=== PATIENT | male | born 1975 | race Caucasian/White ===

== ENCOUNTER 2018-02-13 18:39 | Emergency (ER) | payer MEDICAID ==
[~2018-02-13] VITALS: Ht 188 cm; Wt 109.1 kg
[2018-02-13 21:50] LABS: CLARITY,URINE CLEAR (Clear); COLOR,URINE STRAW (Yellow); GLUCOSE, URINE NEGATIVE (Neg); KETONES,URINE NEGATIVE (Neg); LEUKOCYTE ESTERASE ,URINE NEGATIVE (Neg); NITRITES, URINE NEGATIVE (Neg); OCCULT BLOOD,URINE NEGATIVE (Neg); PH,URINE 6.5 (4.8-8.0); PROTEIN,URINE NEGATIVE (Neg); UA COLLECTION TYPE CLN CATCH MIDSTREAM; UROBILINOGEN,URINE 0.2 E.U/dL (0.2-1.0)
[2018-02-13 21:53] LABS: BASOPHILS # (AUTO) 0.1 X10'3 (0-0.2); BASOPHILS % (AUTO) 1.2 % (0-1); EOSINOPHILS # (AUTO) 0.1 X10'3 (0-0.9); EOSINOPHILS % (AUTO) 1.7 % (0-6); HEMATOCRIT 40.6 % (42.0-52.0); HEMOGLOBIN 14.6 g/dl (14.0-17.9); LYMPHOCYTES # (AUTO) 2.4 X10'3 (1.1-4.8); LYMPHOCYTES % (AUTO) 30.7 % (21-51); MEAN CORPUSCULAR HEMOGLOBIN 31.5 PG (27.0-31.0); MEAN CORPUSCULAR HGB CONC 35.9 % (33.0-36.5); MEAN CORPUSCULAR VOLUME 87.9 FL (78-98); MONOCYTES # (AUTO) 0.6 X10'3 (0-0.9); MONOCYTES % (AUTO) 7.5 % (2-12); NEUTROPHILS # (AUTO) 4.5 X10'3 (1.8-7.7); NEUTROPHILS % (AUTO) 58.9 % (42-75); PLATELET COUNT 229 X10'3 (140-440); RED BLOOD COUNT 4.62 X10'6 (4.70-6.10); RED CELL DISTRIBUTION WIDTH 13.5 % (11.5-14.5); WHITE BLOOD COUNT 7.7 X10'3 (4.5-11.0)
[2018-02-13 21:56] LABS: URINE AMPHETAMINE SCREEN NEGATIVE (Neg); URINE BARBITUATE SCREEN NEGATIVE (Neg); URINE BENZODIAZEPINES SCREEN NEGATIVE (Neg); URINE CANNABINOID SCREEN NEGATIVE (Neg); URINE COCAINE SCREEN NEGATIVE (Neg); URINE METHADONE SCREEN NEGATIVE (Neg); URINE OPIATE SCREEN NEGATIVE (Neg); URINE PHENCYCLIDINE SCREEN NEGATIVE (Neg)
[2018-02-13 23:17] LABS: ALANINE AMINOTRANSFERASE 28 U/L (12-78); ALBUMIN 3.4 G/DL (3.4-5.0); ASPARTATE AMINO TRANSFERASE 21 U/L (10-37); BILIRUBIN,TOTAL 0.3 MG/DL (0.1-1.0); BLOOD UREA NITROGEN 10 MG/DL (7-18); CALCIUM 8.2 MG/DL (8.5-10.1); CHLORIDE 105 MMOL/L (99-107); CREATININE 1.25 MG/DL (0.60-1.10); ETHANOL 0.157 GM/DL (0.0-0.010); GLUCOSE 113 MG/DL (70-104); POTASSIUM 3.3 MMOL/L (3.5-5.1); SODIUM 143 MMOL/L (135-145); TOTAL PROTEIN 6.8 G/DL (6.4-8.2); eGFR 63 ML/MIN
[2018-02-13 23:23] LABS: ANION GAP 12 (8-16); TOTAL CARBON DIOXIDE 25.7 MMOL/L (24-32)
[2018-02-13 23:24] LABS: ALKALINE PHOSPHATASE 74 IU/L (46-116)
[2018-02-13] MEDS ORDERED: potassium Cl 20 mEq SR tablet PO STA (23:26)
[2018-02-14 00:41] LABS: ACETAMINOPHEN < 2.0 UG/ML (10-30)
[2018-02-14] MEDS ORDERED: BENZ1TAB7 PO (12:32)
[2018-02-14] MEDS ORDERED: ESCI20TA PO (12:32)
[2018-02-14] MEDS ORDERED: OXCA600T5 PO (12:32)
[2018-02-14] MEDS ORDERED: PALI117D IM (12:32)
[2018-02-14] MEDS ORDERED: BUSP5TAB3 PO (12:32)
[2018-02-14] MEDS ORDERED: QUET400T PO (12:32)
[2018-02-14] MEDS ORDERED: LORazepam 1 MG tablet PO ONE ×2 (14:50→15:30)
[2018-02-14] MEDS: oxcarbazepine 150mg tablet PO SCH (20:08)
[2018-02-14] MEDS: busPIRone 15mg tablet PO SCH (20:08)
[2018-02-14] MEDS: benztropine 1mg tablet PO SCH (20:08)
[2018-02-14] MEDS: quetiapine 100mg tablet PO SCH (20:08)
[2018-02-15] MEDS: benztropine 1mg tablet PO SCH ×2 (08:30→19:46)
[2018-02-15] MEDS: oxcarbazepine 150mg tablet PO SCH ×2 (08:30→19:46)
[2018-02-15] MEDS: citalopram 20mg tablet PO SCH (08:30)
[2018-02-15] MEDS: busPIRone 15mg tablet PO SCH ×2 (08:30→19:46)
[2018-02-15] MEDS ORDERED: LORazepam 1 MG tablet PO ONE (17:25)
[2018-02-15] MEDS: quetiapine 100mg tablet PO SCH (20:11)
[2018-02-16 05:30] VITALS: BP 104/69
[2018-02-16] MEDS: citalopram 20mg tablet PO SCH (07:59)
[2018-02-16] MEDS: benztropine 1mg tablet PO SCH (07:59)
[2018-02-16] MEDS: busPIRone 15mg tablet PO SCH (08:00)
[2018-02-16] MEDS: oxcarbazepine 150mg tablet PO SCH (08:00)
== END 2018-02-16 12:13 ==
LOC: ER 18:40
DX: R45.850 Homicidal ideations (principal); E87.6 Hypokalemia; F25.9 Schizoaffective disorder, unspecified; F31.9 Bipolar disorder, unspecified; Z79.899 Other long term (current) drug therapy
CPT/HCPCS: 36415; 80053; 80305; 80320; 80329; 81003; 84443; 85025; 99285

== ENCOUNTER 2020-11-22 11:25 | Emergency (ER) | payer SELFPAY ==
[~2020-11-22] VITALS: Ht 188 cm; Wt 109.0 kg
[~2020-11-22 11:25] MED LIST: BENZ1TAB7 PO; BUSP5TAB3 PO; ESCI20TA PO; OXCA600T5 PO; PALI117D IM; QUET400T PO
[2020-11-22 12:32] LABS: CLARITY,URINE CLEAR (Clear); COLOR,URINE STRAW (Yellow); GLUCOSE, URINE NEGATIVE (Neg); KETONES,URINE NEGATIVE (Neg); LEUKOCYTE ESTERASE ,URINE NEGATIVE (Neg); NITRITES, URINE NEGATIVE (Neg); OCCULT BLOOD,URINE NEGATIVE (Neg); PROTEIN,URINE NEGATIVE (Neg); UROBILINOGEN,URINE 0.2 E.U/dL (0.2-1.0)
[2020-11-22 12:36] LABS: UA COLLECTION TYPE CLN CATCH MIDSTREAM
[2020-11-22 12:37] LABS: BASOPHILS % (AUTO) 0.7 % (0-1); EOSINOPHILS # (AUTO) 0.1 X10'3 (0-0.9); EOSINOPHILS % (AUTO) 2.2 % (0-6); HEMATOCRIT 44.3 % (42.0-52.0); HEMOGLOBIN 15.1 g/dl (14.0-17.9); LYMPHOCYTES # (AUTO) 2.1 X10'3 (1.1-4.8); LYMPHOCYTES % (AUTO) 31.7 % (21-51); MEAN CORPUSCULAR HEMOGLOBIN 30.7 PG (27.0-31.0); MEAN CORPUSCULAR VOLUME 90.4 FL (78-98); MEAN PLATELET VOLUME 8.7 FL (7.4-10.4); MONOCYTES # (AUTO) 0.5 X10'3 (0-0.9); MONOCYTES % (AUTO) 7.4 % (2-12); NEUTROPHILS # (AUTO) 3.8 X10'3 (1.8-7.7); PLATELET COUNT 218 X10'3 (140-440); RED CELL DISTRIBUTION WIDTH 13.3 % (11.5-14.5); WHITE BLOOD COUNT 6.5 X10'3 (4.5-11.0)
[2020-11-22 12:50] LABS: ALANINE AMINOTRANSFERASE 26 U/L (12-78); ALBUMIN 4.1 G/DL (3.4-5.0); ALBUMIN/GLOBULIN RATIO 1.2 (1.1-1.5); ALKALINE PHOSPHATASE 50 IU/L (46-116); ANION GAP 12 (8-16); ASPARTATE AMINO TRANSFERASE 19 U/L (10-37); BILIRUBIN,TOTAL 0.6 MG/DL (0.1-1.0); BLOOD UREA NITROGEN 14 MG/DL (7-18); BUN/CREATININE RATIO 12.6 (5.4-32.0); CALCIUM 8.3 MG/DL (8.5-10.1); CHLORIDE 108 MMOL/L (99-107); CREATININE 1.11 MG/DL (0.60-1.10); GLUCOSE 87 MG/DL (70-104); POTASSIUM 4.1 MMOL/L (3.5-5.1); SODIUM 143 MMOL/L (135-145); TOTAL CARBON DIOXIDE 23.1 MMOL/L (24-32); TOTAL PROTEIN 7.4 G/DL (6.4-8.2); eGFR 71 ML/MIN
[2020-11-22] MEDS ORDERED: HYDROcodone/acetaminophen 5mg/325mg tablet PO ONE (13:05)
[2020-11-22 13:07] VITALS: BP 122/78
[2020-11-22] MEDS ORDERED: LIDOcaine 5% patch TP STA (14:20)
[2020-11-22] MEDS ORDERED: LIDO700A32 TOP (14:25)
[2020-11-22] MEDS ORDERED: CYCL-1 PO (14:25)
== END 2020-11-22 14:40 | disposition home or self-care (01) ==
LOC: ER 11:27
DX: M54.5 Low back pain (principal); R53.1 Weakness; F31.9 Bipolar disorder, unspecified; F20.9 Schizophrenia, unspecified; F17.200 Nicotine dependence, unspecified, uncomplicated; Z72.89 Other problems related to lifestyle; Z79.899 Other long term (current) drug therapy
CPT/HCPCS: 36415; 74176; 80053; 81003; 85025; 99284

== ENCOUNTER 2022-06-12 19:58 | Inpatient (IN) | payer OTHER, MEDICARE ==
[~2022-06-12] VITALS: Ht 188 cm; Wt 109.1 kg
--- NOTE | 2022-06-12 03:30 | NUR ---
Patient in room PCU 3016. I have received report from SERGEI Mustafa and had the opportunity to ask questions and assume patient care.
[~2022-06-12 19:58] MED LIST changes: +CYCL-1 PO; +LIDO700A32 TOP
[2022-06-12] MEDS ORDERED: normal saline 1000ML IV soln IVB ONE (20:25)
[2022-06-12 20:34] LABS: BASOPHILS % (AUTO) 0.4 % (0-1); EOSINOPHILS # (AUTO) 0.1 X10'3 (0-0.9); EOSINOPHILS % (AUTO) 0.8 % (0-6); HEMATOCRIT 47.8 % (42.0-52.0); HEMOGLOBIN 16.3 g/dl (14.0-17.9); LYMPHOCYTES # (AUTO) 3.1 X10'3 (1.1-4.8); LYMPHOCYTES % (AUTO) 26.5 % (21-51); MEAN CORPUSCULAR HEMOGLOBIN 30.7 PG (27.0-31.0); MEAN CORPUSCULAR VOLUME 90.2 FL (78-98); MEAN PLATELET VOLUME 8.6 FL (7.4-10.4); MONOCYTES # (AUTO) 0.7 X10'3 (0-0.9); MONOCYTES % (AUTO) 5.7 % (2-12); NEUTROPHILS # (AUTO) 7.8 X10'3 (1.8-7.7); NEUTROPHILS % (AUTO) 66.6 % (42-75); PLATELET COUNT 218 X10'3 (140-440); RED CELL DISTRIBUTION WIDTH 14.7 % (11.5-14.5); WHITE BLOOD COUNT 11.7 X10'3 (4.5-11.0)
[2022-06-12 20:39] LABS: ALANINE AMINOTRANSFERASE 52 U/L (12-78); ALKALINE PHOSPHATASE 73 IU/L (46-116); ANION GAP 15 (8-16); ASPARTATE AMINO TRANSFERASE 45 U/L (10-37); BILIRUBIN,TOTAL 0.4 MG/DL (0.1-1.0); BLOOD UREA NITROGEN 13 MG/DL (7-18); BUN/CREATININE RATIO 8.7 (5.4-32.0); CALCIUM 8.6 MG/DL (8.5-10.1); CHLORIDE 104 MMOL/L (99-107); GLUCOSE 190 MG/DL (70-104); POTASSIUM 3.4 MMOL/L (3.5-5.1); SODIUM 142 MMOL/L (135-145); TOTAL CARBON DIOXIDE 23.1 MMOL/L (24-32); TOTAL PROTEIN 7.9 G/DL (6.4-8.2); eGFR 50 ML/MIN
[2022-06-12 20:52] LABS: ETHANOL 0.161 GM/DL (0.0-0.010)
[2022-06-12] MEDS ORDERED: diltiazem 5mg/ml 5ml inj. IV ONE ×2 (22:15→22:40)
[2022-06-12] MEDS ORDERED: diltiazem-NS 100mg/100ml 100 ML IV SCH (22:15)
[2022-06-12] MEDS ORDERED: LORazepam 2 mg/ml vial IV ONE (22:40)
[2022-06-12 23:37] LABS: COLOR,URINE YELLOW (Yellow); GLUCOSE, URINE NEGATIVE (Neg); KETONES,URINE 15 mg/dl (Neg); LEUKOCYTE ESTERASE ,URINE NEGATIVE (Neg); NITRITES, URINE NEGATIVE (Neg); OCCULT BLOOD,URINE SMALL (Neg); PROTEIN,URINE 100 mg/dl (Neg); UROBILINOGEN,URINE 0.2 E.U/dL (0.2-1.0)
[2022-06-12 23:42] LABS: CLARITY,URINE SLIGHTLY CLOUDY (Clear); UA COLLECTION TYPE CLN CATCH MIDSTREAM
[2022-06-12 23:43] LABS: CELLULAR CAST 0-4 /LPF (NEGATIVE); COARSE GRANULAR CAST >30 /LPF (NEGATIVE)
[2022-06-12 23:44] LABS: FINE GRANULAR CAST 0-3 /LPF (NEGATIVE); HYALINE CASTS 0-3 /LPF (NEGATIVE); SPERM FEW /HPF (NEGATIVE); SQUAMOUS EPITHELIAL CELL,UR NONE SEEN /LPF (FEW)
[2022-06-12 23:45] LABS: BACTERIA,URINE FEW /HPF (Neg)
[2022-06-12 23:46] LABS: AMORPHOUS URATES 1+; TRANSITIONAL EPI CELLS,URINE FEW /HPF; WBC,URINE 0-4 /HPF (0-4)
[2022-06-12 23:51] LABS: URINE AMPHETAMINE SCREEN POSITIVE (Neg); URINE BARBITUATE SCREEN NEGATIVE (Neg); URINE BENZODIAZEPINES SCREEN POSITIVE (Neg); URINE CANNABINOID SCREEN NEGATIVE (Neg); URINE COCAINE SCREEN NEGATIVE (Neg); URINE METHADONE SCREEN NEGATIVE (Neg); URINE OPIATE SCREEN NEGATIVE (Neg); URINE PHENCYCLIDINE SCREEN NEGATIVE (Neg)
[2022-06-12] MEDS ORDERED: morphine 2 MG/ML inj. syringe IV PRN ×2 (23:55)
[2022-06-12] MEDS ORDERED: mag hydrox/Alum hydrox/simeth 30ml oral suspension PO PRN (23:55)
[2022-06-12] MEDS ORDERED: magnesium hydroxide 30ml (MOM) UD suspension PO PRN (23:55)
[2022-06-12] MEDS ORDERED: ondansetron/PF 4mg/2ml inj IV PRN (23:55)
[2022-06-12] MEDS ORDERED: acetaminophen 325mg tablet PO PRN ×2 (23:55)
--- NOTE | 2022-06-13 02:30 | NUR ---
pt. has tremors. paged dr. burciaga waiting for call back.
--- NOTE | 2022-06-13 02:42 | NUR ---
paged patrica x2. waiting for call back.
[2022-06-13] MEDS ORDERED: LORazepam 2 mg/ml vial IV ONE (02:45)
[2022-06-13 03:30] VITALS: BP 124/76
[2022-06-13] MEDS ORDERED: haloperidol lactate 5mg/ml inj IM PRN (05:40)
[2022-06-13] MEDS ORDERED: mag hydrox/Alum hydrox/simeth 30ml oral suspension PO PRN (05:40)
[2022-06-13] MEDS ORDERED: haloperidol 5mg tablet PO PRN (05:40)
[2022-06-13 06:00] VITALS: BP 140/81
[2022-06-13 07:28] LABS: BASOPHILS % (AUTO) 0.3 % (0-1); EOSINOPHILS % (AUTO) 0.1 % (0-6); HEMATOCRIT 42.4 % (42.0-52.0); HEMOGLOBIN 15.1 g/dl (14.0-17.9); LYMPHOCYTES # (AUTO) 1.6 X10'3 (1.1-4.8); LYMPHOCYTES % (AUTO) 12.8 % (21-51); MEAN CORPUSCULAR HEMOGLOBIN 31.2 PG (27.0-31.0); MEAN CORPUSCULAR HGB CONC 35.6 g/dL (33.0-36.5); MEAN CORPUSCULAR VOLUME 87.6 FL (78-98); MEAN PLATELET VOLUME 8.5 FL (7.4-10.4); MONOCYTES # (AUTO) 0.8 X10'3 (0-0.9); MONOCYTES % (AUTO) 6.5 % (2-12); NEUTROPHILS # (AUTO) 9.8 X10'3 (1.8-7.7); NEUTROPHILS % (AUTO) 80.3 % (42-75); PLATELET COUNT 177 X10'3 (140-440); RED BLOOD COUNT 4.84 X10'6 (4.70-6.10); RED CELL DISTRIBUTION WIDTH 14.4 % (11.5-14.5); WHITE BLOOD COUNT 12.2 X10'3 (4.5-11.0)
[2022-06-13 07:31] LABS: ALBUMIN 3.4 G/DL (3.4-5.0); ANION GAP 8 (8-16); BLOOD UREA NITROGEN 14 MG/DL (7-18); BUN/CREATININE RATIO 12.1 (5.4-32.0); CHLORIDE 101 MMOL/L (99-107); CREATININE 1.16 MG/DL (0.60-1.10); GLUCOSE 105 MG/DL (70-104); POTASSIUM 3.7 MMOL/L (3.5-5.1); SODIUM 137 MMOL/L (135-145); TOTAL CARBON DIOXIDE 27.8 MMOL/L (24-32); eGFR 67 ML/MIN
[2022-06-13] MEDS ORDERED: multivitamins, therapeutics tablet PO SCH (08:00)
[2022-06-13] MEDS ORDERED: docusate sod 100mg capsule PO SCH (08:00)
[2022-06-13] MEDS ORDERED: folic acid 1mg/0.2ml inj IV SCH (08:00)
--- NOTE | 2022-06-13 08:27 | NUR ---
Problems reprioritized. Patient report given, questions answered & plan of care reviewed with Pham MAI.
[2022-06-13] MEDS: thiamine 100mg/ml 2ml inj. IV SCH ×2 (08:47→13:33)
[2022-06-13] MEDS: LORazepam 2 mg/ml vial IV PRN ×2 (09:06→13:33)
[2022-06-13 11:15] VITALS: BP 169/85
[2022-06-13 11:47] VITALS: BP 158/82
--- NOTE | 2022-06-13 14:02 | NUR ---
Marimar schmitt B/P in 80s after 2x midodrine with 300 output. Pt not symptomatic. manual/automatic done. Addendum: 06/13/22 at 1458 by Pham Magdaleno RN Wrong patient documentation.
[2022-06-13] MEDS ORDERED: TEST75GE10 TOP (14:34)
[2022-06-13] MEDS ORDERED: VITA200T8 PO (14:34)
[2022-06-13] MEDS ORDERED: CHOL400T57 PO (14:34)
[2022-06-13] MEDS ORDERED: HYDR50TA65 PO (14:34)
--- NOTE | 2022-06-13 14:50 | NUR ---
Nursing staff informed patient of the risk of leaving AMA with family at the bedside. Pt ripped out IV and bolted past family and ran past nursing staff to [facility]. Pt stated he was leaving and was done. Security and [employer] alerted. Addendum: 06/13/22 at 1931 by Pham Magdaleno RN Tele monitor returned to [employer].
--- NOTE | 2022-06-13 14:57 | NUR ---
Spoke with Dr. Brea Stout. Security [employer] and security notified. Dr Guidry officially discharged the patient AMA.
[2022-06-15] MEDS ORDERED: LORazepam 1 MG tablet PO PRN (05:40)
[2022-06-15] MEDS ORDERED: LORazepam 2 mg/ml vial IV PRN (05:40)
[2022-06-17] MEDS ORDERED: LORazepam 2 mg/ml vial IV PRN (05:40)
[2022-06-17] MEDS ORDERED: LORazepam 1 MG tablet PO PRN (05:40)
[2022-06-17] MEDS ORDERED: folic acid 1mg tablet PO SCH (08:00)
[2022-06-17] MEDS ORDERED: thiamine 100mg tablet PO SCH (08:00)
== END 2022-06-13 14:40 | disposition left against medical advice (07) | DRG 917 ==
LOC: ER 19:59 → ED HOLD 23:58 → PCU 3S 06-13 03:30
PROVIDERS: ADMIT Internal Medicine; ATTEND Family Medicine
DX: T40.2X1A Poisoning by other opioids, accidental (unintentional), initial encounter (principal); G92.8 Other toxic encephalopathy; J96.00 Acute respiratory failure, unspecified whether with hypoxia or hypercapnia; F10.29 Alcohol dependence with unspecified alcohol-induced disorder; F11.90 Opioid use, unspecified, uncomplicated; F19.10 Other psychoactive substance abuse, uncomplicated; Z53.29 Procedure and treatment not carried out because of patient's decision for other reasons; F20.9 Schizophrenia, unspecified; F31.9 Bipolar disorder, unspecified; G47.00 Insomnia, unspecified; I48.0 Paroxysmal atrial fibrillation; Y92.89 Other specified places as the place of occurrence of the external cause
CPT/HCPCS: 36415; 70450; 71045; 80048; 80053; 80305; 80320; 81001; 82948; 83880; 84443; 84484; 85025; 93306; 99291; A6258; G0378; J2060; J2270; J3411; J3490; J7030

== ENCOUNTER 2022-06-13 15:22 | Emergency (ER) | payer OTHER, MEDICARE ==
[~2022-06-13] VITALS: Ht 188 cm; Wt 109.0 kg
[~2022-06-13 15:22] MED LIST changes: +CHOL400T57 PO; +HYDR50TA65 PO; +TEST75GE10 TOP; +VITA200T8 PO
[2022-06-13 16:00] VITALS: BP 161/87
== END 2022-06-14 00:29 | disposition left against medical advice (07) ==
LOC: ER 15:22
DX: F29 Unspecified psychosis not due to a substance or known physiological condition (principal); Z53.21 Procedure and treatment not carried out due to patient leaving prior to being seen by health care provider

== ENCOUNTER 2022-06-14 10:07 | Emergency (ER) | payer OTHER, MEDICARE ==
[~2022-06-14] VITALS: Ht 188 cm; Wt 111.4 kg
[~2022-06-14 10:07] MED LIST changes: -BENZ1TAB7 PO; -BUSP5TAB3 PO; -CYCL-1 PO; -ESCI20TA PO; -LIDO700A32 TOP; -OXCA600T5 PO; -PALI117D IM; -QUET400T PO
[2022-06-14 10:10] VITALS: BP 146/98
--- NOTE | 2022-06-14 10:43 | NUR ---
attempt ekg, patient to xray and lab. will attempt agan after.
[2022-06-14 10:55] LABS: BASOPHILS % (AUTO) 0.4 % (0-1); EOSINOPHILS % (AUTO) 0.4 % (0-6); HEMATOCRIT 46.9 % (42.0-52.0); HEMOGLOBIN 16.1 g/dl (14.0-17.9); LYMPHOCYTES # (AUTO) 1.1 X10'3 (1.1-4.8); LYMPHOCYTES % (AUTO) 11.1 % (21-51); MEAN CORPUSCULAR HGB CONC 34.4 g/dL (33.0-36.5); MEAN CORPUSCULAR VOLUME 90.1 FL (78-98); MEAN PLATELET VOLUME 8.3 FL (7.4-10.4); MONOCYTES # (AUTO) 0.7 X10'3 (0-0.9); MONOCYTES % (AUTO) 6.6 % (2-12); NEUTROPHILS # (AUTO) 8.2 X10'3 (1.8-7.7); NEUTROPHILS % (AUTO) 81.5 % (42-75); PLATELET COUNT 194 X10'3 (140-440); RED BLOOD COUNT 5.21 X10'6 (4.70-6.10); RED CELL DISTRIBUTION WIDTH 14.8 % (11.5-14.5); WHITE BLOOD COUNT 10.1 X10'3 (4.5-11.0)
[2022-06-14 11:06] LABS: ALANINE AMINOTRANSFERASE 43 U/L (12-78); ALBUMIN 3.6 G/DL (3.4-5.0); ALBUMIN/GLOBULIN RATIO 0.9 (1.1-1.5); ALKALINE PHOSPHATASE 65 IU/L (46-116); ANION GAP 6 (8-16); ASPARTATE AMINO TRANSFERASE 43 U/L (10-37); BILIRUBIN,TOTAL 1.1 MG/DL (0.1-1.0); BLOOD UREA NITROGEN 7 MG/DL (7-18); BUN/CREATININE RATIO 6.3 (5.4-32.0); CALCIUM 8.8 MG/DL (8.5-10.1); CHLORIDE 99 MMOL/L (99-107); CREATININE 1.12 MG/DL (0.60-1.10); GLUCOSE 129 MG/DL (70-104); POTASSIUM 3.8 MMOL/L (3.5-5.1); SODIUM 135 MMOL/L (135-145); TOTAL CARBON DIOXIDE 30.2 MMOL/L (24-32); TOTAL PROTEIN 7.6 G/DL (6.4-8.2); eGFR 70 ML/MIN
[2022-06-14 11:13] LABS: ETHANOL 0.084 GM/DL (0.0-0.010)
== END 2022-06-14 16:29 | disposition left against medical advice (07) ==
LOC: ER 10:09
DX: F10.129 Alcohol abuse with intoxication, unspecified (principal); R07.89 Other chest pain; R45.1 Restlessness and agitation; F31.9 Bipolar disorder, unspecified; F20.9 Schizophrenia, unspecified; F11.90 Opioid use, unspecified, uncomplicated; Z72.89 Other problems related to lifestyle; Z79.899 Other long term (current) drug therapy; Y90.0 Blood alcohol level of less than 20 mg/100 ml
CPT/HCPCS: 36415; 71045; 80053; 80320; 83735; 83880; 84484; 85025; 99284

== ENCOUNTER 2023-02-03 22:54 | Emergency (ER) | payer MEDICARE, OTHER ==
[~2023-02-03] VITALS: Ht 188 cm; Wt 109.1 kg
[2023-02-03 23:57] LABS: ALANINE AMINOTRANSFERASE 32 U/L (12-78); ALBUMIN 4.7 G/DL (3.4-5.0); ALBUMIN/GLOBULIN RATIO 1.3 (1.1-1.5); ALKALINE PHOSPHATASE 75 IU/L (46-116); ANION GAP 16 (8-16); ASPARTATE AMINO TRANSFERASE 19 U/L (10-37); BILIRUBIN,TOTAL 0.6 MG/DL (0.1-1.0); BLOOD UREA NITROGEN 20 MG/DL (7-18); BUN/CREATININE RATIO 14.1 (10.0-20.0); CHLORIDE 103 MMOL/L (99-107); CREATININE 1.42 MG/DL (0.60-1.10); ETHANOL 0.119 GM/DL (0.0-0.010); GLUCOSE 123 MG/DL (70-104); POTASSIUM 4.1 MMOL/L (3.5-5.1); SODIUM 141 MMOL/L (135-145); TOTAL CARBON DIOXIDE 21.8 MMOL/L (24-32); TOTAL PROTEIN 8.4 G/DL (6.4-8.2); eGFR 53 ML/MIN
[2023-02-04 00:17] LABS: BASOPHILS % (AUTO) 0.3 % (0-1); EOSINOPHILS % (AUTO) 0.1 % (0-6); HEMATOCRIT 50.1 % (42.0-52.0); HEMOGLOBIN 17.4 g/dl (14.0-17.9); LYMPHOCYTES # (AUTO) 1.6 X10'3 (1.1-4.8); LYMPHOCYTES % (AUTO) 17.4 % (21-51); MEAN CORPUSCULAR HEMOGLOBIN 30.6 PG (27.0-31.0); MEAN CORPUSCULAR HGB CONC 34.7 g/dL (33.0-36.5); MEAN CORPUSCULAR VOLUME 88.4 FL (78-98); MEAN PLATELET VOLUME 8.1 FL (7.4-10.4); MONOCYTES # (AUTO) 0.3 X10'3 (0-0.9); MONOCYTES % (AUTO) 3.4 % (2-12); NEUTROPHILS # (AUTO) 7.2 X10'3 (1.8-7.7); NEUTROPHILS % (AUTO) 78.8 % (42-75); PLATELET COUNT 298 X10'3 (140-440); RED BLOOD COUNT 5.67 X10'6 (4.70-6.10); RED CELL DISTRIBUTION WIDTH 13.3 % (11.5-14.5); WHITE BLOOD COUNT 9.1 X10'3 (4.5-11.0)
[2023-02-04] MEDS ORDERED: chlordiazePOXIDE 25mg capsule PO ONE ×2 (02:25→07:50)
[2023-02-04] MEDS ORDERED: quetiapine 100mg tablet PO STA (03:08)
[2023-02-04] MEDS: QUEtiapine 25mg tablet PO SCH ×3 (03:11→20:24)
[2023-02-04 03:14] LABS: URINE AMPHETAMINE SCREEN POSITIVE (Neg); URINE BARBITUATE SCREEN NEGATIVE (Neg); URINE BENZODIAZEPINES SCREEN NEGATIVE (Neg); URINE CANNABINOID SCREEN NEGATIVE (Neg); URINE COCAINE SCREEN NEGATIVE (Neg); URINE METHADONE SCREEN NEGATIVE (Neg); URINE OPIATE SCREEN NEGATIVE (Neg); URINE PHENCYCLIDINE SCREEN NEGATIVE (Neg)
--- NOTE | 2023-02-04 07:04 | NUR ---
PT APPROVED RN TO UPDATE HIS FRIEND SERENA BEARDEN. SERENA WAS UPDATED. PER SEAMUS MEDINA RN HE MAY VISIT PT.
[2023-02-04] MEDS ORDERED: QUEtiapine 25mg tablet PO ONE (07:50)
[2023-02-04] MEDS ORDERED: QUEtiapine 25mg tablet PO SCH (07:50)
[2023-02-04] MEDS ORDERED: QUET50TA PO (07:52)
--- NOTE | 2023-02-04 08:20 | NUR ---
PT C/O MODERATE ANXIETY. NO HOLT. MILD SWEATING. NO ITCHING. PT DOES C/O AUDITORY HALLUCINATIONS. RN ADMIN LIBRIUM FOR ETOH WITHDRAWAL SX.
[2023-02-04] MEDS ORDERED: nicotine 14mg patch - 24hr TD ONE (10:10)
--- NOTE | 2023-02-04 13:15 | NUR ---
Pt. moved from ER bed 16 to overflow bed 26
[2023-02-04] MEDS ORDERED: chlordiazePOXIDE 25mg capsule PO PRN (14:25)
--- NOTE | 2023-02-04 15:19 | NUR ---
Patient is sleeping on her left side. No S/S of distress noted.
--- NOTE | 2023-02-04 15:42 | NUR ---
Patient was given Librium 100 mg. One to one performed at bedside. Patient denies SI, states he does not hear any A/H today, that it has gone away from the meth. Patient's was at bedside, but has left. Patient is pleasant and cooperative.
--- NOTE | 2023-02-04 15:47 | NUR ---
Patient makes frequent trips to the restroom, denies UTI symptoms. Reports due to anxiety.
--- NOTE | 2023-02-04 15:53 | NUR ---
is at bedside.
--- NOTE | 2023-02-04 16:20 | NUR ---
Adult daughter here to see patient, at bedside.
--- NOTE | 2023-02-04 16:57 | NUR ---
[facility] called for nurse to nurse. They will present him to
--- NOTE | 2023-02-04 17:31 | NUR ---
Patient has been accepted at [facility] in [place]. They will require a nurse to nurse in the morning and [facility] office will call with name and # of person to speak with. Patient will be discharging tomorrow morning.
[2023-02-04] MEDS ORDERED: LORA2TAB96 PO (19:39)
--- NOTE | 2023-02-04 20:00 | NUR ---
Pt visiting with .
[2023-02-04] MEDS ORDERED: LORazepam 1 MG tablet PO PRN (20:10)
[2023-02-04] MEDS: LORazepam 1 MG tablet PO SCH ×2 (20:28→23:00)
[2023-02-04] MEDS ORDERED: hydrOXYzine 25 MG tablet PO SCH (21:00)
--- NOTE | 2023-02-04 22:31 | NUR ---
Pt in bed with eyes closed. No s/s of distress at this time.
--- NOTE | 2023-02-05 00:10 | NUR ---
Pt in bed with eyes closed. No s/s od distress at this time.
[2023-02-05] MEDS: LORazepam 1 MG tablet PO SCH ×5 (00:59→08:59)
--- NOTE | 2023-02-05 02:06 | NUR ---
Pt in bed with eyes closed sleeping comfortably. No s/s od distress at this time. Addendum: 02/05/23 at 0520 by [email or web address] Pt in bed with eyes open.
--- NOTE | 2023-02-05 04:11 | NUR ---
Pt in bed with eyes closed, sleeping comfortably. No s/s od distress at this time.
--- NOTE | 2023-02-05 05:38 | NUR ---
Note undone in ED - 02/05/23 at 0541 by [email or web address] Pt in bed with eyes closed sleeping comfortably. No s/s od distress at this time. Addendum: 02/05/23 at 0539 by [email or web address] Amendment undone in ED - 02/05/23 at 0541 by [email or web address] Chapin Wallaceieved report from AM shift. Pt walking around unit socailizing with staff. Pt was here to visit, she brought Pt belongings and Pt prescription home medication.This abstract writer reconciled med this evening. Pt home meds at pharmacy. During assessment Pt reported "still feels high on speedball." Pt appears anxious and jittery, wide eye, expressive, feeling irritable, and impatient. Pt denies SI,HI,AH/VH.
--- NOTE | 2023-02-05 05:51 | NUR ---
Pt awake sitting on the edge of the bed.
[2023-02-05 06:12] VITALS: BP 124/94
--- NOTE | 2023-02-05 06:52 | NUR ---
Took report from Lesly MAI
[2023-02-05] MEDS: QUEtiapine 25mg tablet PO SCH (07:28)
[2023-02-05] MEDS ORDERED: TESTOSTERONE TOP SCH (08:00)
[2023-02-05] MEDS ORDERED: cholecalciferol (vitamin D3) 400 unit (10mcg) tablet PO SCH (08:00)
--- NOTE | 2023-02-05 08:33 | NUR ---
Report called to Ira[facility]
== END 2023-02-05 09:16 ==
LOC: ER 22:55
DX: R45.851 Suicidal ideations (principal); Z20.822 Contact with and (suspected) exposure to COVID-19; F20.9 Schizophrenia, unspecified; F15.10 Other stimulant abuse, uncomplicated; F10.20 Alcohol dependence, uncomplicated; Z87.81 Personal history of (healed) traumatic fracture; Z88.0 Allergy status to penicillin; Z79.899 Other long term (current) drug therapy
CPT/HCPCS: 36415; 80053; 80305; 80320; 85025; 87811; 99285; Q0177

== ENCOUNTER 2023-05-29 14:24 | Emergency (ER) | payer BC, MEDICARE ==
[~2023-05-29] VITALS: Ht 188 cm; Wt 105.0 kg
[~2023-05-29 14:24] MED LIST changes: +LORA2TAB96 PO; +QUET50TA PO
[2023-05-29 14:29] VITALS: BP 140/99; PULSE 62; RESP 18; O2SAT 99
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
[2023-05-29] MEDS ORDERED: acetaminophen 325mg tablet PO ONE (17:15)
[2023-05-29 17:38] VITALS: TEMP 97
== END 2023-05-29 18:10 | disposition home or self-care (01) ==
LOC: ER 14:27
DX: S60.222A Contusion of left hand, initial encounter (principal); S20.222A Contusion of left back wall of thorax, initial encounter; M79.602 Pain in left arm; F31.9 Bipolar disorder, unspecified; F15.90 Other stimulant use, unspecified, uncomplicated; Z88.0 Allergy status to penicillin; Z79.899 Other long term (current) drug therapy; Y08.89XA Assault by other specified means, initial encounter; Y93.89 Activity, other specified; Y92.89 Other specified places as the place of occurrence of the external cause; Y99.8 Other external cause status
CPT/HCPCS: 73030; 73080; 73130; 99284

== ENCOUNTER 2023-09-24 19:08 | Inpatient (IN) | payer BC, MEDICARE ==
[~2023-09-24] VITALS: Ht 188 cm; Wt 105.2 kg
[2023-09-24 19:39] LABS: BASOPHILS % (AUTO) 0.3 % (0-1); EOSINOPHILS % (AUTO) 0.3 % (0-6); HEMATOCRIT 46.1 % (42.0-52.0); LYMPHOCYTES # (AUTO) 2.1 X10'3 (1.1-4.8); LYMPHOCYTES % (AUTO) 20.7 % (21-51); MEAN CORPUSCULAR HEMOGLOBIN 30.8 PG (27.0-31.0); MEAN CORPUSCULAR HGB CONC 34.7 g/dL (33.0-36.5); MEAN CORPUSCULAR VOLUME 88.9 FL (78-98); MONOCYTES # (AUTO) 0.7 X10'3 (0-0.9); MONOCYTES % (AUTO) 6.8 % (2-12); NEUTROPHILS # (AUTO) 7.4 X10'3 (1.8-7.7); NEUTROPHILS % (AUTO) 71.9 % (42-75); PLATELET COUNT 246 X10'3 (140-440); RED BLOOD COUNT 5.19 X10'6 (4.70-6.10); RED CELL DISTRIBUTION WIDTH 13.8 % (11.5-14.5); WHITE BLOOD COUNT 10.3 X10'3 (4.5-11.0)
[2023-09-24] MEDS: LORazepam 2 mg/ml vial IM ONE (19:47)
[2023-09-24] MEDS: diphenhydrAMINE 50 mg/ml inj IM ONE (19:47)
[2023-09-24] MEDS: haloperidol lactate 5mg/ml inj IM ONE (19:48)
[2023-09-24] MEDS ORDERED: CITA20TA26 PO (19:59)
[2023-09-24] MEDS ORDERED: PROP10TA10 PO (19:59)
[2023-09-24] MEDS ORDERED: QUET-1 PO (19:59)
[2023-09-24] MEDS ORDERED: PRAZ2CAP2 PO (19:59)
[2023-09-24 20:03] LABS: ALBUMIN 4.3 G/DL (3.4-5.0); ANION GAP 11 (8-16); BLOOD UREA NITROGEN 14 MG/DL (7-18); BUN/CREATININE RATIO 9.7 (10.0-20.0); CALCIUM 8.9 MG/DL (8.5-10.1); CHLORIDE 105 MMOL/L (99-107); CREATININE 1.44 MG/DL (0.60-1.10); ETHANOL 188 MG/DL (<10); GLUCOSE 95 MG/DL (70-104); POTASSIUM 4.1 MMOL/L (3.5-5.1); SODIUM 141 MMOL/L (135-145); THYROID STIMULATING HORMONE 1.58 ulU/ml (0.34-4.50); TOTAL CARBON DIOXIDE 25.3 MMOL/L (24-32); eCRCL 72 ML/MIN; eGFR 52 ML/MIN
[2023-09-24 20:20] LABS: URINE AMPHETAMINE SCREEN POSITIVE (Neg); URINE BARBITUATE SCREEN NEGATIVE (Neg); URINE BENZODIAZEPINES SCREEN NEGATIVE (Neg); URINE CANNABINOID SCREEN NEGATIVE (Neg); URINE COCAINE SCREEN NEGATIVE (Neg); URINE METHADONE SCREEN NEGATIVE (Neg); URINE OPIATE SCREEN NEGATIVE (Neg); URINE PHENCYCLIDINE SCREEN NEGATIVE (Neg)
[2023-09-24] MEDS: propranolol 10mg tablet PO SCH (21:00)
[2023-09-24] MEDS: quetiapine 100mg tablet PO SCH (21:00)
[2023-09-24] MEDS: prazosin 1mg capsule PO SCH (21:00)
[2023-09-24] MEDS: hydrOXYzine 25 MG tablet PO SCH (21:00)
[2023-09-24] MEDS ORDERED: hydrOXYzine 25 MG tablet PO SCH (21:00)
[2023-09-24] MEDS: BUPIVAcaine 0.5% W/EPI /PF 30ml vial IJ ONE (21:42)
[2023-09-24] MEDS ORDERED: tetanus & diphtheria toxoid (Td) vaccine 0.5ml IMVAC ONE (21:45)
[2023-09-24] MEDS: cephalexin 250mg capsule PO SCH (22:06)
[2023-09-24] MEDS: TETanus/Pertussis (Acell)/Diphther VAC/PF (Tdap-Adult) 0.5ml syringe IMVAC ONE (22:29)
[2023-09-25] MEDS ORDERED: QUET50TA24 PO (08:11)
[2023-09-25] MEDS: citalopram 20mg tablet PO SCH (08:43)
[2023-09-25] MEDS ORDERED: LORazepam 1 MG tablet PO PRN (12:00)
[2023-09-25] MEDS ORDERED: nicotine 7mg patch - 24hr TD SCH (12:00)
[2023-09-25] MEDS: LORazepam 1 MG tablet PO PRN (12:07)
[2023-09-25] MEDS: NICOTINE POLACRILEX 2 MG LOZENGE BC PRN (13:06)
[2023-09-25] MEDS: QUEtiapine 25mg tablet PO SCH (13:06)
[2023-09-25 18:43] LABS: BILIRUBIN,URINE NEGATIVE (Neg); CLARITY,URINE CLEAR (Clear); COLOR,URINE YELLOW (Yellow); GLUCOSE, URINE NEGATIVE (Neg); KETONES,URINE TRACE mg/dl (Neg); LEUKOCYTE ESTERASE ,URINE NEGATIVE (Neg); NITRITES, URINE NEGATIVE (Neg); OCCULT BLOOD,URINE NEGATIVE (Neg); PH,URINE 6.5 (4.8-8.0); PROTEIN,URINE NEGATIVE (Neg); UROBILINOGEN,URINE 0.2 E.U/dL (0.2-1.0)
[2023-09-25 18:48] LABS: UA COLLECTION TYPE CLN CATCH MIDSTREAM
[2023-09-25 22:34] VITALS: BP 109/62; PULSE 75; RESP 16; TEMP 97.1; O2SAT 94
[2023-09-25 23:30] VITALS: RESP 16; O2SAT 94
[2023-09-26] MEDS ORDERED: mag hydrox/Alum hydrox/simeth 30ml oral suspension PO PRN (00:10)
[2023-09-26] MEDS ORDERED: acetaminophen 325mg tablet PO PRN ×2 (00:10)
[2023-09-26] MEDS ORDERED: magnesium hydroxide 30ml (MOM) UD suspension PO PRN (00:10)
[2023-09-26] MEDS ORDERED: loperamide 2mg capsule PO PRN (00:10)
[2023-09-26] MEDS: LORazepam 1 MG tablet PO ONE (00:30)
[2023-09-26 07:00] VITALS: RESP 12; O2SAT 96
[2023-09-26 08:00] VITALS: BP 135/79; PULSE 56; RESP 12; TEMP 97.9; O2SAT 96
[2023-09-26] MEDS: nicotine 21mg patch - 24 hr TD SCH (09:31)
[2023-09-26] MEDS: hydrOXYzine 25 MG tablet PO PRN (13:48)
[2023-09-26 19:00] VITALS: RESP 20; O2SAT 99
[2023-09-26 20:00] VITALS: BP 150/87; PULSE 62; RESP 20; TEMP 97.4; O2SAT 99
[2023-09-26] MEDS: prazosin 1mg capsule PO SCH (20:31)
[2023-09-27 07:00] VITALS: RESP 20; O2SAT 99
[2023-09-27 08:10] LABS: ALANINE AMINOTRANSFERASE 34 U/L (12-78); ALBUMIN 3.2 G/DL (3.4-5.0); ALBUMIN/GLOBULIN RATIO 0.9 (1.1-1.5); ALKALINE PHOSPHATASE 64 IU/L (46-116); ANION GAP 8 (8-16); ASPARTATE AMINO TRANSFERASE 43 U/L (10-37); BILIRUBIN,TOTAL 0.5 MG/DL (0.1-1.0); BLOOD UREA NITROGEN 20 MG/DL (7-18); BUN/CREATININE RATIO 16.5 (10.0-20.0); CALCIUM 8.4 MG/DL (8.5-10.1); CHLORIDE 107 MMOL/L (99-107); CREATININE 1.21 MG/DL (0.60-1.10); GLUCOSE 96 MG/DL (70-104); POTASSIUM 4.2 MMOL/L (3.5-5.1); SODIUM 142 MMOL/L (135-145); TOTAL CARBON DIOXIDE 27.1 MMOL/L (24-32); TOTAL PROTEIN 6.6 G/DL (6.4-8.2); eCRCL 86 ML/MIN; eGFR 64 ML/MIN
[2023-09-27 08:11] VITALS: BP_SYST 122; BP_SYST 128; BP_DIAS 62; BP_DIAS 75; PULSE 49; PULSE 80; RESP 16; TEMP 97.7; TEMP 97.9; O2SAT 96; O2SAT 97
[2023-09-27] MEDS: buPROPion SR 100mg tab PO SCH (08:11)
[2023-09-27] MEDS: LORazepam 1 MG tablet PO PRN (12:25)
[2023-09-27] MEDS: thiamine 100mg tablet PO SCH (17:54)
[2023-09-27] MEDS: folic acid 1mg tablet PO SCH (17:54)
[2023-09-27] MEDS: multivitamins, therapeutics tablet PO SCH (17:54)
[2023-09-27 19:43] VITALS: BP 129/98; PULSE 64; RESP 16; TEMP 98.1; O2SAT 99
[2023-09-27] MEDS: quetiapine 100mg tablet PO SCH (20:40)
[2023-09-27] MEDS: hydrOXYzine 25 MG tablet PO PRN (20:41)
[2023-09-27] MEDS: QUEtiapine 25mg tablet PO SCH (20:41)
[2023-09-27] MEDS: prazosin 1mg capsule PO SCH (20:41)
[2023-09-28 07:00] VITALS: RESP 20; O2SAT 99
[2023-09-28 08:00] VITALS: BP 117/59; PULSE 50; RESP 14; TEMP 98.1; O2SAT 97
[2023-09-28] MEDS: busPIRone 5mg tablet PO SCH (15:15)
[2023-09-28 19:59] VITALS: BP 142/86; PULSE 61; RESP 19; TEMP 97.3; O2SAT 100
[2023-09-28] MEDS: LORazepam 1 MG tablet PO PRN (20:29)
[2023-09-29 06:34] VITALS: RESP 20; O2SAT 99
[2023-09-29 07:18] VITALS: BP 116/71; PULSE 62; RESP 14; TEMP 98.1; O2SAT 98
[2023-09-29] MEDS: buPROPion SR 100mg tab PO SCH (07:36)
[2023-09-29 19:00] VITALS: RESP 16; O2SAT 96
[2023-09-29 20:00] VITALS: BP 143/100; PULSE 70; RESP 16; TEMP 98.7; O2SAT 96
[2023-09-30 07:00] VITALS: RESP 16; O2SAT 100
[2023-09-30] MEDS: busPIRone 5mg tablet PO SCH (07:25)
[2023-09-30 08:00] VITALS: BP 133/82; PULSE 81; RESP 16; TEMP 98.4; O2SAT 100
[2023-09-30] MEDS: TESTOSTERONE TP SCH (10:00)
[2023-09-30 19:00] VITALS: RESP 18; O2SAT 100
[2023-09-30 19:45] VITALS: BP 168/102; PULSE 67; RESP 18; TEMP 97.2; O2SAT 100
[2023-09-30 20:00] VITALS: BP 168/102; PULSE 67; RESP 18; TEMP 97.2; O2SAT 100
[2023-09-30] MEDS: TESTOSTERONE CYPIONATE 200 MG/ML VIAL IM ONE (22:18)
[2023-10-01 07:00] VITALS: RESP 16; O2SAT 98
[2023-10-01 08:00] VITALS: BP 136/94; PULSE 64; RESP 16; TEMP 97.4; O2SAT 98
[2023-10-01 19:00] VITALS: RESP 18; O2SAT 99
[2023-10-01 20:00] VITALS: BP 159/96; PULSE 67; RESP 18; TEMP 97.3; O2SAT 100
[2023-10-01 22:02] VITALS: BP 159/96; PULSE 68; RESP 18; TEMP 97.3; O2SAT 99
[2023-10-02 07:00] VITALS: BP 142/97; PULSE 63; RESP 16; TEMP 98; O2SAT 99
[2023-10-02 12:45] VITALS: BP 136/91; PULSE 62
[2023-10-02] MEDS ORDERED: NICO-687 TD (18:51)
[2023-10-02] MEDS ORDERED: NALT380S2 IM (18:51)
[2023-10-02] MEDS ORDERED: MULT-25 PO (18:51)
[2023-10-02] MEDS ORDERED: PROP10TA10 PO (18:51)
[2023-10-02] MEDS ORDERED: PRAZ5CAP2 PO (18:51)
[2023-10-02] MEDS ORDERED: QUET200T31 PO (18:51)
[2023-10-02] MEDS ORDERED: BUSP10TA3 PO (18:51)
[2023-10-02] MEDS ORDERED: HYDR50TA65 PO (18:51)
[2023-10-02] MEDS ORDERED: BUPR100T15 PO (18:51)
[2023-10-02] MEDS ORDERED: QUET50TA24 PO (18:53)
[2023-10-02 19:30] VITALS: BP 141/88; PULSE 68; RESP 18; TEMP 96.8; O2SAT 100
== END 2023-10-02 20:00 | disposition home or self-care (01) | DRG 885 ==
LOC: ER 19:08 → ADULT MH 09-25 16:30
PROVIDERS: ADMIT Psychiatry & Neurology Psychiatry; ATTEND Psychiatry & Neurology Psychiatry
PROC: 0HQDXZZ Repair Right Lower Arm Skin, External Approach (ICD-10-PCS; 2023-09-25)
PROC: GZHZZZZ Group Psychotherapy (ICD-10-PCS; principal; 2023-09-26)
PROC: GZ51ZZZ Individual Psychotherapy, Behavioral (ICD-10-PCS; 2023-09-26)
DX: F33.2 Major depressive disorder, recurrent severe without psychotic features (principal); R45.851 Suicidal ideations; F10.239 Alcohol dependence with withdrawal, unspecified; F43.10 Post-traumatic stress disorder, unspecified; G47.00 Insomnia, unspecified; F41.1 Generalized anxiety disorder; F17.210 Nicotine dependence, cigarettes, uncomplicated; F19.10 Other psychoactive substance abuse, uncomplicated; Z20.822 Contact with and (suspected) exposure to COVID-19; I10 Essential (primary) hypertension; F25.9 Schizoaffective disorder, unspecified; N28.9 Disorder of kidney and ureter, unspecified; S61.511A Laceration without foreign body of right wrist, initial encounter; X58.XXXA Exposure to other specified factors, initial encounter; Y93.89 Activity, other specified; Y92.89 Other specified places as the place of occurrence of the external cause; Y99.8 Other external cause status; Z88.0 Allergy status to penicillin; Z88.8 Allergy status to other drugs, medicaments and biological substances; Z79.899 Other long term (current) drug therapy
CPT/HCPCS: 12004; 36415; 80048; 80053; 80305; 80320; 81003; 84443; 85025; 87081; 87811; 90471; 90715; 96372; 99285; A6258; A6449; J1200; J1630; J2060; Q0177; Z7610